=== PATIENT | male | born 1990 ===

== ENCOUNTER 2016-08-23 11:40 | Emergency (ER) | payer SELFPAY ==
--- NOTE | 2016-08-23 18:29 | ER ---
ADMIT: 08/23/2016 RM/LOC: ER [facility] MR#: [id number] [address] [address]ED[address] [place] [address] Emergency Room Report SEX: M AGE: 25 : 1990 DATE: 08/23/2016 TIME: 1140 hours. Please refer to my T-sheet for complete H and P. HISTORY OF PRESENT ILLNESS: Briefly, the patient is a 25-year-old, who comes in with sore throat, it has been there for a week. It is getting worse, though. He had been on an antibiotic. He went ahead and started another antibiotic for urgent care, however, now feels like it is pushing to the side. He has trouble swallowing. It hurts on the left side of his neck. PHYSICAL EXAMINATION: VITAL SIGNS: Stable. HEENT: He has a very swollen tonsillar bed on the left that is moving slightly to the right. The uvula is pushed slightly to the right. There appears to be a soft tissue swelling behind it. There is no pointing abscess that I can see. NECK: Soft and supple. Fullness on the whole anterior left side of the neck, and his anterior cervical lymph nodes are slightly swollen. EMERGENCY DEPARTMENT COURSE: I offered an IV, they refused as they did not want to "spend more money than they had to." I gave him Decadron 10 IM. I offered an ambulance ride for them to [place] after I talked to Dr. Stoddard who would like to see him of ENT. The patient refused and says his family member will drive him. I told risks and benefits and they understood, and they would go by private vehicle over to [place] to be evaluated by Richi. ASSESSMENT: 1. Left peritonsillar abscess. 2. Refuses ambulance and wants to go by private vehicle even after risks and benefits. PLAN: Transfer to [facility] to see ENT, Dr. Stoddard. I discussed with each. Lamine Mcknight MD/ regine JOB #: [id number] CC: Lamine Mcknight MD, Attending Physician Ryne Stoddard MD
== END 2016-08-23 12:50 | disposition short-term general hospital (02) ==
LOC: ER 11:40
DX: K05.219 Aggressive periodontitis, localized, unspecified severity (principal); F17.210 Nicotine dependence, cigarettes, uncomplicated

== ENCOUNTER 2016-08-29 10:26 | Emergency (ER) | payer SELFPAY ==
--- NOTE | 2016-09-04 08:44 | ER ---
ADMIT: 08/29/2016 RM/LOC: ER [facility] MR#: [id number] [address] [address] [place] [address] Emergency Room Report SEX: M AGE: 25 : 1990 DATE: 08/29/2016 TIME: 1026 hours. Please refer to my T-sheet for complete H and P. Briefly, the patient is 25- year-old who comes in with post tonsillectomy bleed, it started about an hour or so prior to arrival in the Emergency Department. It was severe. He had his tonsils and a peritonsillar abscess drained and tonsils removed on Thursday. He had done very well until the bleeding came on all of a sudden. PHYSICAL EXAM: VITAL SIGNS: Stable. HEENT: His tonsils are postop. The right and left one have a small clot on it. There was a huge clot in his mouth when he first got here. We evacuated that. He had minimal bleeding noted out of the right tonsil bed. He flushed his mouth with water. He started bleeding again out of the right bed and then he did stop. I gave him a gram of TXA IV. CBC was normal except hemoglobin 13.9. I talked to Dr. Stoddard who did his surgery in [place]. He would like him transferred over there. The patient is comfortable with this after discussions. I recommended we go by ambulance but the patient said he would rather go by private vehicle. He refused ambulance transfer. I talked to Dr. Stoddard about this, he is aware of it. We left his IV in as a lock, and he will drive to the ER in [place], Dr. Stoddard accepts. ASSESSMENT: Status post tonsillectomy bleed that recurred. PLAN: Transfer to [place], patient is electing to go by private vehicle. Lamine Mcknight MD/ regine JOB #: [id number] CC: Lamine Mcknight MD, Attending Physician
== END 2016-08-29 12:25 | disposition short-term general hospital (02) ==
LOC: ER 10:26
DX: J95.830 Postprocedural hemorrhage of a respiratory system organ or structure following a respiratory system procedure (principal); F17.210 Nicotine dependence, cigarettes, uncomplicated; Z79.899 Other long term (current) drug therapy